=== PATIENT | male | born 1985 | race Hispanic/Latino ===

== ENCOUNTER 2018-01-20 14:30 | Emergency (ER) | payer SELFPAY ==
[~2018-01-20] VITALS: Ht 172.7 cm; Wt 95.4 kg
[~2018-01-20 14:30] MED LIST: LOTRISONE15 GM TP
[2018-01-20 15:36] LABS: SOURCE URINE
[2018-01-20 16:59] VITALS: BP 128/82
[2018-01-22 12:51] LABS: CHLAMYDIA TRACHOMATIS NEGATIVE; NEISSERIA GONORRHOEAE NEGATIVE
== END 2018-01-20 17:01 | disposition home or self-care (01) ==
LOC: EME 14:30
DX: B37.49 Other urogenital candidiasis (principal); Z72.0 Tobacco use
CPT/HCPCS: 87491; 87591; 99281; 99283; J0696